=== PATIENT | male | born 1950 | race Caucasian/White ===

== ENCOUNTER → 2017-01-12 | Outpatient (CLI) | payer BC, OTHER ==
--- NOTE | 2017-01-12 11:32 | EKG ---
[address] [address] Measurements Intervals [place] Rate: P: 46 WA: 179 QRS: 27 QRSD: 86 T: 47 QT: 441 QTc: 441 Interpretive Statements SINUS RHYTHM No previous ECG available for comparison Electronically Signed On 01-12-17 11:36:37 MDT by Zohaib Irwin [email or web address]
[2017-01-13 11:01] LABS: PSATOTAL 3.5 ng/mL (<=4.5)
[2017-01-14 13:51] LABS: FREE PSA/PSA RATIO SEE COMMENTS ratio (())
== END ==
LOC: MOB EKG 10:58
PROVIDERS: ATTEND Nurse Practitioner Family
DX: R00.2 Palpitations (principal); R97.20 Elevated prostate specific antigen [PSA]
CPT/HCPCS: 36415; 84153; 84154; 93005; 93010